=== PATIENT | female | born 1965 | race Caucasian/White ===

== ENCOUNTER 2022-11-30 03:07 | Observation (INO) | payer BC, SELFPAY ==
[2022-11-30] VITALS (26 sets, daily range): BP systolic 91–125; BP diastolic 44–76; PULSE 69–95; RESP 12–19; TEMP 36.6; O2SAT 94–100; BMI 25.0
--- NOTE | 2022-11-30 03:08 | W.ED.OVERDOS ---
HPI - Overdose General: Chief Complaint: Overdose Stated Complaint: OD Time Seen by Provider: 11/30/22 03:07 History of Present Illness: Ms. Cloud is a 57-year-old lady with no cardiac history presenting to the emergency department for accidental overdose of 3 tablets of diltiazem. Apparently she is staying with a friend and was having heartburn. She asked her friend for heartburn medications and accidentally was given diltiazem. She took 1 dose at approximately 12:30 AM and subsequently continued for what we worse. She took 2 more however realized that these were not antacids when she felt generally unwell and tried to vomit them up. She did find the pill fragments probably from the 2. She currently feels improved and continues to have heartburn. She did have lightheadedness, generalized weakness, some abdominal discomfort. Intensity symptoms at worst was moderate. Course is improved. No other specific changes in health, exacerbating, or alleviating factors identified. Onset (ago): hour(s) Context: Accidental Overdose: other Associated symptoms: dizziness and other Review of Systems General: Reports: 10 or more systems reviewed and unremarkable except in HPI and below PFSH ED PFSH: Medical History Accidental overdose of calcium-channel melchor No significant past medical history Surgical History History of cholecystectomy Family History Denies family history of CAD (coronary artery disease) Social History Smoking and tobacco status: never smoked Alcohol intake: never Physical Exam Const: COMMON NORMALS: alert GENERAL APPEARANCE: cooperative and well developed HENMT: COMMON NORMALS: normocephalic and atraumatic HEAD & SCALP: normocephalic and atraumatic Eye: COMMON NORMALS: conjunctivae normal CONJUNCTIVA: Yes conjunctivae normal SCLERA: sclerae normal Neck/C-Spine: COMMON NORMALS: supple GENERAL: Yes trachea midline Resp: COMMON NORMALS: clear to auscultation bilaterally EFFORT & INSPECTION: Yes able to speak in complete sentences AUSCULTATION: clear to auscultation bilaterally Cardio: COMMON NORMALS: regular rate and regular rhythm RATE: regular rate RHYTHM: regular rhythm GI: COMMON NORMALS: Soft to palpation PALPATION: Yes Soft to palpation and No Tenderness to palpation present (GI) Extremity: GENERAL: Yes normal exam except as noted and No edema Neuro: COMMON NORMALS: moves all extremities SENSORIUM/ORIENTATION: Yes alert and No Orientation impaired Psych: COMMON NORMALS: mental status grossly normal and Normal thought process present THOUGHT PROCESS: Normal thought process present Course Vital Signs: Vital signs: Vital Signs Temperature 97.8 F 11/30/22 13:47 Pulse Rate 74 11/30/22 13:47 Respiratory Rate 15 11/30/22 13:47 Blood Pressure 117/72 11/30/22 13:47 Pulse Oximetry 97 11/30/22 13:47 Oxygen Delivery Me thod Room Air 11/30/22 12:00 MDM - Overdose Medical Decision Making 57-year-old lady presenting with accidental overdose of Cardizem. Initially symptomatic however appears to be somewhat improved. Does not take Cardizem at baseline. EKG demonstrates sinus rhythm with nonspecific ST segment abnormalities, normal axis and intervals, no STEMI. Unremarkable hematologic and metabolic panel. Chest x-ray with no lobar consolidation or pneumothorax. Patient given antiemetic. Discussed with poison control, given uncertainty of long-acting or short acting formulation long-acting may have peak action up to 14 hours and therefore patient will be admitted for observation and symptomatic management. The results of ED evaluation were discussed with the patient including plan for admission due to requirement for level of care not available if discharged to prevent significant worsening/deterioration. Patient agreeable with plan. Discussed with hospitalist service who was agreeable to admit patient. Medical Records I reviewed the patient's medical records. Lab Data I reviewed the patient's lab results. 11/30/22 02:50 11/30/22 02:50 Radiology Impressions Chest X-Ray 11/30/22 03:18 IMPRESSION: No acute findings. Laboratory Results WBC 7.5 10^3/uL (4.0-10.0) 11/30/22 02:50 RBC 4.69 10^6/uL (4.1-5.3) 11/30/22 02:50 Hgb 13.6 g/dL (11.5-15.3) 11/30/22 02:50 Hct 43.4 % (37.0-47.0) 11/30/22 02:50 MCV 92.5 fl (81-99) 11/30/22 02:50 MCH 29.0 pg (28.0-34.0) 11/30/22 02:50 MCHC 31.3 g/dL (30.0-36.0) 11/30/22 02:50 RDW 13.2 % (12.1-15.1) 11/30/22 02:50 Plt Count 174 10^3/cmm (130-400) 11/30/22 02:50 MPV 11.5 fL (7.4-10.4) H 11/30/22 02:50 Neut % (Auto) 58.1 % 11/30/22 02:50 Lymph % (Auto) 32.9 % 11/30/22 02:50 [place] % (Auto) 6.1 % 11/30/22 02:50 Eos % (Auto) 2.0 % 11/30/22 02:50 Baso % (Auto) 0.8 % 11/30/22 02:50 Neut # (Auto) 4.34 10^3/uL (1.8-7.7) 11/30/22 02:50 Lymph # (Auto) 2.5 10^3/uL (0.8-4.8) 11/30/22 02:50 [place] # (Auto) 0.5 10^3/uL (0.2-0.9) 11/30/22 02:50 Eos # (Auto) 0.2 10^3/uL (0.0-0.8) 11/30/22 02:50 Baso # (Auto) 0.1 10^3/uL (0.0-0.1) 11/30/22 02:50 Nucleated RBC % (auto) 0 % 11/30/22 02:50 Nucleated RBCs # 0.0 /100WBC 11/30/22 02:50 Sodium 140 mmol/L (136-145) 11/30/22 02:50 Potassium 4.0 mmol/L (3.5-5.1) 11/30/22 02:50 Chloride 102 mmol/L (98-107) 11/30/22 02:50 Carbon Dioxide 26 mmol/L (22-29) 11/30/22 02:50 Anion Gap 16.0 (5-19) 11/30/22 02:50 BUN 18 mg/dL (6-20) 11/30/22 02:50 Creatinine 0.9 mg/dL (0.5-0.9) 11/30/22 02:50 GFR Calculation 64.5 mL/min (90-130) L 11/30/22 02:50 Glucose 181 mg/dL (65-115) H 11/30/22 02:50 Calculated Osmolality 296 mOsm/kg (285-295) H 11/30/22 02:50 Calcium 9.3 mg/dL (8.5-10.5) 11/30/22 02:50 Magnesium 1.9 mg/dL (1.7-2.3) 11/30/22 02:50 Total Bilirubin 0.2 mg/dL (0.15-1.2) 11/30/22 02:50 AST 13 U/L (0-32) 11/30/22 02:50 ALT 16 U/L (0-33) 11/30/22 02:50 Alkaline Phosphatase 62 U/L (35-105) 11/30/22 02:50 Troponin T Baseline 6 ng/L (0-10) 11/30/22 02:50 Troponin T 120 Minute 6.00 ng/L (0-10) 11/30/22 04:56 Delta Troponin T 0 ABS# (0-10) 11/30/22 04:56 NT-Pro-B Natriuret Pep 36 pg/mL (0-125) 11/30/22 02:50 Total Protein 6.4 g/dL (6.6-8.7) L 11/30/22 02:50 Albumin 4.2 g/dL (3.5-5.2) 11/30/22 02:50 Globulin 2.2 g/dL (1.3-4.6) 11/30/22 02:50 Lipase 22 U/L (13-60) 11/30/22 02:50 Discharge Plan Discharge Patient Disposition: Placed in Observation Admit Provider: Tiffanie Lyons Clinical Impression: Accidental overdose of calcium-channel melchor Discharge Diet: Regular Discharge Activity: Increase activity as tolerated Coding Level of Care Code ED Equipment Records Supervisor for Beverly Liu
--- NOTE | 2022-11-30 03:18 | XRR_ITS ---
PROCEDURE INFORMATION: Exam: XR Chest Exam date and time: 11/30/2022 3:34 AM Age: 57 years old Clinical indication: Pain; Chest pressure; Additional info: Cp TECHNIQUE: Imaging protocol: Radiologic exam of the chest. Views: 1 view. COMPARISON: No relevant prior studies available. FINDINGS: Lungs: Unremarkable. No consolidation. Pleural spaces: Unremarkable. No pleural effusion. No pneumothorax. Heart/Mediastinum: Unremarkable. No cardiomegaly. Bones/joints: Unremarkable. XR/XR chest 1V portable [id number] IMPRESSION: No acute findings.
--- NOTE | 2022-11-30 03:18 | ECG_ITS ---
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 Measurements Intervals [place] Rate: 81 P: 74 NM: 130 QRS: 64 QRSD: 93 T: 61 QT: 367 QTc: 426 Interpretive Statements SINUS RHYTHM No previous ECG available for comparison Electronically Signed On 11-30-2022 9:52:08 CDT by Dejah Olmstead M.D. [id number]
[2022-11-30 03:25] LABS: Basophils # 0.1 10^3/uL (0.0-0.1); Basophils % 0.8 %; Eosinophils # 0.2 10^3/uL (0.0-0.8); Hematocrit 43.4 % (37.0-47.0); Hemoglobin 13.6 g/dL (11.5-15.3); Lymphocytes # 2.5 10^3/uL (0.8-4.8); Lymphocytes % 32.9 %; Mean Corpuscular HGB Conc 31.3 g/dL (30.0-36.0); Mean Corpuscular Volume 92.5 fl (81-99); Mean Platelet Volume 11.5 fL (7.4-10.4); Monocytes # 0.5 10^3/uL (0.2-0.9); Monocytes % 6.1 %; Neutrophils # 4.34 10^3/uL (1.8-7.7); Neutrophils % 58.1 %; Nucleated Red Blood Cells % 0 %; Platelet Count 174 10^3/cmm (130-400); Red Blood Count 4.69 10^6/uL (4.1-5.3); Red Cell Distribution Width 13.2 % (12.1-15.1); White Blood Count 7.5 10^3/uL (4.0-10.0)
[2022-11-30] MEDS: lidocaine 2% viscous 15 ML, aluminum-mag hydrox-simethicon 30 ML, sucralfate oral liq 1 GM PO ×2 (03:27→11:14)
[2022-11-30 03:41] LABS: Troponin(5th) Baseline 6 ng/L (0-10)
[2022-11-30 03:50] LABS: Alanine Aminotransferase 16 U/L (0-33); Albumin Level 4.2 g/dL (3.5-5.2); Alkaline Phosphatase 62 U/L (35-105); Aspartate Amino Transferase 13 U/L (0-32); Blood Urea Nitrogen 18 mg/dL (6-20); Calcium 9.3 mg/dL (8.5-10.5); Carbon Dioxide 26 mmol/L (22-29); Chloride 102 mmol/L (98-107); Creatinine Clr Calc Pharmacy 71.8456; Globulin 2.2 g/dL (1.3-4.6); Glomerular Filtration Rate 64.5 mL/min (90-130); Glucose 181 mg/dL (65-115); Lipase 22 U/L (13-60); Magnesium 1.9 mg/dL (1.7-2.3); NT Pro B Type Natriuretic Pept 36 pg/mL (0-125); Osmolality Calculated 296 mOsm/kg (285-295); Sodium 140 mmol/L (136-145); Total Bilirubin 0.2 mg/dL (0.15-1.2); Total Protein 6.4 g/dL (6.6-8.7)
[2022-11-30] MEDS: ondansetron 2 mg/ML SDV 2 mL 4 MG IVP (04:48)
--- NOTE | 2022-11-30 05:18 | ECG_ITS ---
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 Measurements Intervals [place] Rate: 66 P: 66 [place]: 129 QRS: 48 QRSD: 93 T: 42 QT: 405 QTc: 427 Interpretive Statements SINUS RHYTHM Compared to ECG 11/30/2022 03:18:01 No significant changes Electronically Signed On 11-30-2022 9:52:26 CDT by Dejah Olmstead M.D. [id number]
--- NOTE | 2022-11-30 05:37 | PM.HP ---
Providers/Chief Complaint Chief Complaint: OD History of Present Illness Sandee Cloud is a 57 year old female who does not have significant past medical history presented today with chief complaint of accidentally taking diltiazem. Patient stating that she was experiencing acid reflux when she asked for antacid, her friend accidentally gave her diltiazem thinking those were antacid tablets. She was brought to the ER, she was hemodynamically stable normal CBC and BMP. Poison control recommended monitoring for a few hours in the ICU, she was put on IV fluids, blood pressure initially was 90/50mmhg, she was asymptomatic Review of Systems Eyes: Denies: change in vision ENMT: Denies: throat pain Card: Denies: chest pain Resp: Denies: dyspnea GI: Denies: abdominal pain : Denies: flank pain Musc: Denies: neck pain Skin/Breast: Denies: rash Neuro: Denies: headache(s) Psych: Denies: anxiety Endo: Denies: polyuria [place]/Lymph: Denies: easy bruising All/Imm: Denies: urticaria Medications/Allergies Home Medications Medication Instructions Recorded Confirmed Last Taken Type albuterol sulfate 90 mcg/actuation 2 puff inhalation Q4H PRN 11/30/22 11/30/22 Unknown History aerosol inhaler Shortness Of Breath Or Wheezing omeprazole 40 mg capsule,delayed 40 mg PO DAILY 11/30/22 11/30/22 Unknown History release Allergies Allergy/AdvReac Type Severity Reaction Status Date / Time cephalexin [From Keflex] Allergy Unknown Verified 11/30/22 03:19 Penicillins Allergy Unknown Verified 11/30/22 03:19 PFSH Acute PFSH: Medical History (Updated 11/30/22 @ 10:58 by Rubina Rehman MD) No significant past medical history Surgical History (Updated 11/30/22 @ 10:58 by Rubina Rehman MD) History of cholecystectomy Family History (Updated 11/30/22 @ 10:58 by Rubina Rehman MD) Denies family history of CAD (coronary artery disease) Social History (Updated 11/30/22 @ 10:59 by Rubina Rehman MD) Smoking and tobacco status: never smoked Alcohol intake: never Vitals/I&O/Wt Last Vital Signs Temp 97.8 F 11/30/22 03:08 Pulse 87 11/30/22 05:16 Resp 16 11/30/22 05:16 BP 109/76 11/30/22 05:16 Pulse Ox 99 11/30/22 05:16 O2 Del Method Room Air 11/30/22 03:08 Weight last 48 hrs Weight 72.575 kg Physical Exam Narrative: Awake and alert Euvolemic Low blood pressure GCS 15 Currently doing well room air Asymptomatic S1, S2 Abdomen soft Appears stated age Data 11/30/22 02:50 11/30/22 02:50 A&P Assessment and plan (1) Accidental overdose of calcium-channel melchor: Plan Accidental overdose on diltiazem No active signs of neurological changes Blood pressure slightly soft, started on IV fluids Requested echo Requested EKG with troponin Check TSH Magnesium is 1.9 Potassium 4.0 We will give 1 g calcium gluconate Admit to ICU Monitor for next few hours Patient is full code Cardiac diet Attestations Medical Necessity Statement*: Anticipating discharge within 48 hours Diagnoses Accidental overdose of calcium-channel melchor T46.1X1A
[2022-11-30 05:38] LABS: Troponin 5 2HR Delta 0 ABS# (0-10)
--- NOTE | 2022-11-30 06:28 | USCV_ITS ---
Ai Sandee Age: 57 Gender: F : 1965 Exam Date: 11/30/2022 08:12 Ordering Phys: Rubina Rehman MD Technologist: SRIDHAR Exam Location: [facility] [place] Indication: cp BP: 115 / 67 HR: 75 Rhythm: Sinus Technical Quality: Adequate MEASUREMENTS (Male / Female) Normal Values 2D ECHO LV Diastolic Diameter PLAX 4.1 cm 4.2 - 5.9 / 3.9 - 5.3 cm LV Systolic Diameter PLAX 2.5 cm LV Chamber Size 5.2 cm IVS Diastolic Thickness 1.0 cm 0.6 - 1.0 / 0.6 - 0.9 cm IVS Systolic Thickness 1.3 cm LVPW Diastolic Thickness 1.4 cm 0.6 - 1.0 / 0.6 - 0.9 cm LVPW Systolic Thickness 1.9 cm RV Chamber Size 3.7 cm LVOT Diameter 2.0 cm LV Ejection Fraction 2D Teich 70.1 % LV Ejection Fraction MOD 2C 29.2 % LV Ejection Fraction 2C AL 29.9 % LA Diameter 3.9 cm LA Width 3.7 cm LA Height 5.4 cm RA Width 4.0 cm RA Height 4.6 cm Aorta at Sinotubular Diameter 2.5 cm IVC Diameter 1.5 cm M-MODE Aortic Annulus Diameter 2.8 cm LA Ao Ratio MM 1.4 MV E Point Septal Separation 0.6 cm DOPPLER AV Peak Velocity 171.0 cm/s LVOT Peak Velocity 146.0 cm/s AV Area Cont Eq vti 3.0 cm squared AV Area Cont Eq pk 2.8 cm squared MV Peak Velocity 99.0 cm/s MV Area PHT 3.5 cm squared Mitral E to A Ratio 1.0 MV E' Velocity 55.0 cm/s Mitral E to MV E' Ratio 8.1 Mitral E to LV E' Lateral Ratio 6.3 Mitral E to LV E' Septal Ratio 11.3 TR Peak Velocity 126.8 cm/s TR Peak Gradient 6.4 mmHg TR Mean Velocity 101.5 cm/s TR Mean Gradient 4.5 mmHg TR Velocity Time Integral 22.8 cm TV Peak E Velocity 80.0 cm/s Right Atrial Pressure 3.0 mmHg Pulmonary Artery Systolic Pressu 9.4 mmHg PV Peak Velocity 119.0 cm/s FINDINGS Left Ventricle Left ventricle is normal in size. LV systolic function is normal with EF of 55 to 60%. No regional wall motion abnormalities are seen. Right Ventricle Normal in size and function Right Atrium Normal in size Left Atrium Normal in size Mitral Valve Mitral valve is thickened. Trace mitral regurgitation Aortic Valve Structurally normal aortic valve. No significant stenosis or regurgitation is seen. Tricuspid Valve Mild tricuspid regurgitation. Insufficient TR jet to calculate RVSP. Pulmonic Valve Not well visualized Pericardium Normal Aorta Normal in size IVC Appears to be normal CONCLUSIONS LV systolic function is normal with EF of 55 to 60%. Trace mitral regurgitation Trace of tricuspid regurgitation No comparison studies are available Blas Jason MD (Electronically Signed) Final Date: 30 November 2022 14:18 S
[2022-11-30] MEDS: enoxaparin 40 mg/0.4 mL Syringe SUBCUT (06:51)
[2022-11-30] MEDS: calcium gluconate 0.1 gm/mL 10% SDV 10mL 1 GM IVP (06:51)
[2022-11-30] MEDS: sodium chloride 0.9% 1,000 ML 75 ML IV (06:52)
[2022-11-30 07:33] LABS: Thyroid Stimulating Hormone 1.66 uIU/mL (0.27-4.20)
[2022-11-30 07:36] LABS: Estmated Average Glucose 128; Hemoglobin A1C 6.1 % (4.0-6.0)
[2022-11-30 08:25] LABS: Vitamin B12 454 pg/mL (232-1245)
[2022-11-30 09:42] LABS: Troponin 5 6HR Delta 0 ng/L (0-12)
--- NOTE | 2022-11-30 10:12 | ECG_ITS ---
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 Measurements Intervals [place] Rate: 68 P: 72 DC: 134 QRS: 50 QRSD: 90 T: 45 QT: 404 QTc: 433 Interpretive Statements SINUS RHYTHM Compared to ECG 11/30/2022 05:15:07 No significant changes Electronically Signed On 11-30-2022 12:36:08 CDT by Dejah Olmstead M.D. [id number]
--- NOTE | 2022-11-30 11:00 | PM.DCS ---
Discharge Providers Date of Admission: 11/30/22 06:21 Date of Discharge: November 30, 2022 Attending Provider at Admission: Tiffanie Lyons MD Attending Provider at Discharge: Tiffanie Lyons MD Diagnoses at Discharge Discharge Diagnosis (1) Accidental overdose of calcium-channel melchor: Status: Acute Reason for Visit Reason for Visit: OD Hospital Course Hospital Course 57-year female who was admitted for management evaluation of calcium channel melchor toxicity, she accidentally took 3 tablets of diltiazem which she thought were antacids, she was experiencing GERD, poison control recommended monitoring for a few hours, I gave her 1 g calcium gluconate in the ICU, she remained hemodynamically stable on IV fluid normal saline 75 mill per hour, patient is asymptomatic able to communicate, eat her breakfast, ambulate, will give her Protonix and sucralfate at discharge I have asked her to follow-up with PCP for her GERD symptoms management, she is being discharged with stable hemodynamics, echo report is pending, EKG showing sinus rhythm, no QTc prolongation, troponins flat. Physical Exam Narrative: GCS 15 Asymptomatic S1, S2 Abdomen soft Currently doing well on room air Nonfocal neuro exam Pleasant and cooperative Discharge Data Studies Completed and Pending Completed Studies During Hospitalization Category Date Time Status XR chest 1V portable [id number] Stat Exams 11/30/22 03:18 Completed Pending at discharge Category Date Time Status Basic Metabolic Panel AM LABS Lab 12/01/22 04:00 Ordered Complete Blood Count w/Auto AM LABS Lab 12/01/22 04:00 Ordered Magnesium AM LABS Lab 12/01/22 04:00 Ordered CV. echo complete* [id number] Routine Ultrasound 11/30/22 06:28 Taken Radiology Impressions Chest X-Ray 11/30/22 03:18 IMPRESSION: No acute findings. Laboratory Results WBC 7.5 10^3/uL (4.0-10.0) 11/30/22 02:50 RBC 4.69 10^6/uL (4.1-5.3) 11/30/22 02:50 Hgb 13.6 g/dL (11.5-15.3) 11/30/22 02:50 Hct 43.4 % (37.0-47.0) 11/30/22 02:50 MCV 92.5 fl (81-99) 11/30/22 02:50 MCH 29.0 pg (28.0-34.0) 11/30/22 02:50 MCHC 31.3 g/dL (30.0-36.0) 11/30/22 02:50 RDW 13.2 % (12.1-15.1) 11/30/22 02:50 Plt Count 174 10^3/cmm (130-400) 11/30/22 02:50 MPV 11.5 fL (7.4-10.4) H 11/30/22 02:50 Neut % (Auto) 58.1 % 11/30/22 02:50 Lymph % (Auto) 32.9 % 11/30/22 02:50 [place] % (Auto) 6.1 % 11/30/22 02:50 Eos % (Auto) 2.0 % 11/30/22 02:50 Baso % (Auto) 0.8 % 11/30/22 02:50 Neut # (Auto) 4.34 10^3/uL (1.8-7.7) 11/30/22 02:50 Lymph # (Auto) 2.5 10^3/uL (0.8-4.8) 11/30/22 02:50 [place] # (Auto) 0.5 10^3/uL (0.2-0.9) 11/30/22 02:50 Eos # (Auto) 0.2 10^3/uL (0.0-0.8) 11/30/22 02:50 Baso # (Auto) 0.1 10^3/uL (0.0-0.1) 11/30/22 02:50 Nucleated RBC % (auto) 0 % 11/30/22 02:50 Nucleated RBCs # 0.0 /100WBC 11/30/22 02:50 Sodium 140 mmol/L (136-145) 11/30/22 02:50 Potassium 4.0 mmol/L (3.5-5.1) 11/30/22 02:50 Chloride 102 mmol/L (98-107) 11/30/22 02:50 Carbon Dioxide 26 mmol/L (22-29) 11/30/22 02:50 Anion Gap 16.0 (5-19) 11/30/22 02:50 BUN 18 mg/dL (6-20) 11/30/22 02:50 Creatinine 0.9 mg/dL (0.5-0.9) 11/30/22 02:50 GFR Calculation 64.5 mL/min (90-130) L 11/30/22 02:50 Glucose 181 mg/dL (65-115) H 11/30/22 02:50 Estimat Average Glucose 128 11/30/22 06:55 Hemoglobin A1c 6.1 % (4.0-6.0) H 11/30/22 06:55 Calculated Osmolality 296 mOsm/kg (285-295) H 11/30/22 02:50 Calcium 9.3 mg/dL (8.5-10.5) 11/30/22 02:50 Magnesium 1.9 mg/dL (1.7-2.3) 11/30/22 02:50 Total Bilirubin 0.2 mg/dL (0.15-1.2) 11/30/22 02:50 AST 13 U/L (0-32) 11/30/22 02:50 ALT 16 U/L (0-33) 11/30/22 02:50 Alkaline Phosphatase 62 U/L (35-105) 11/30/22 02:50 Troponin T Baseline 6 ng/L (0-10) 11/30/22 02:50 Troponin T 120 Minute 6.00 ng/L (0-10) 11/30/22 04:56 Delta Troponin T 0 ABS# (0-10) 11/30/22 04:56 Troponin T Hi Sens 6Hr 6.00 ng/L (0-10) 11/30/22 08:50 Troponin T Hi Sens 6Hr Delta 0 ng/L (0-12) 11/30/22 08:50 NT-Pro-B Natriuret Pep 36 pg/mL (0-125) 11/30/22 02:50 Total Protein 6.4 g/dL (6.6-8.7) L 11/30/22 02:50 Albumin 4.2 g/dL (3.5-5.2) 11/30/22 02:50 Globulin 2.2 g/dL (1.3-4.6) 11/30/22 02:50 Lipase 22 U/L (13-60) 11/30/22 02:50 Vitamin B12 454 pg/mL (232-1245) 11/30/22 06:55 TSH 1.66 uIU/mL (0.27-4.20) 11/30/22 06:55 Vitals Last Vital Signs Temp 97.8 F 11/30/22 06:38 Pulse 75 11/30/22 09:15 Resp 14 11/30/22 09:15 BP 106/56 11/30/22 09:15 Pulse Ox 95 11/30/22 09:15 O2 Del Method Room Air 11/30/22 09:15 Discharge Plan Discharge Patient Disposition: Home Condition: Stable Prescriptions: New sucralfate 1 gram tablet 1 g PO BID 56 Days Qty: 112 0RF Continued albuterol sulfate 90 mcg/actuation HFA aerosol inhaler 2 puff INHALATION Q4H PRN (Reason: Shortness Of Breath Or Wheezing) Changed omeprazole 40 mg capsule,delayed release(DR/EC) 40 mg PO BIDWM Qty: 60 0RF Discharge Orders: Discharge Order (Routine); Ordered 11/30/22 Ordered By: Rubina Rehman Referrals: Kishor Narayanan MD [Referring] - 7-10 days Discharge Diet: Regular Discharge Activity: Increase activity as tolerated Patient Instructions: Opioid Safety Discharge Attestations Time Spent in Discharge Care*: greater than 30 min Quality Metrics Clinical Quality Measures [ No reported AMI, CVA or VTE this stay] Coding Level of Care Code Acute Code for Chg Fwd Diagnoses Accidental overdose of calcium-channel melchor T46.1X1A
[2022-11-30] MEDS: pantoprazole DR 40 mg Tablet PO (11:14)
[2022-11-30] MEDS: acetaminophen 500 mg Tablet PO (12:54)
--- NOTE | 2022-11-30 14:01 | PC.NURSE ---
discharge instructions given. no questions or concerns at this time. meds to bed was provided with the discharge prescription. iv removed from the left forearm. discharged out to personal vehicle with friend.
--- NOTE | 2022-12-01 13:41 | PC.SOCIAL ---
Unable to reach patient for TCM call, message sent to [facility] to arrange visit.
== END 2022-11-30 14:02 | disposition home or self-care (01) ==
LOC: ER 04:57 → ICU 07:29
PROVIDERS: Internal Medicine; Admitting Provider Internal Medicine; Emergency Provider Emergency Medicine; Visit Provider Internal Medicine
DX: T46.1X1A Poisoning by calcium-channel blockers, accidental (unintentional), initial encounter (principal); K21.9 Gastro-esophageal reflux disease without esophagitis
CPT/HCPCS: 36415; 71045; 80053; 82607; 83036; 83690; 83735; 83880; 84443; 84484; 85025; 93005; 93306; 96372; 96374; 96375; 99285; G0378; J0612; J1650; J2405; J7030